=== PATIENT | female | born 1950 | race Caucasian/White ===

== ENCOUNTER 2017-04-12 02:51 | Emergency (ER) | payer MEDICARE, SELFPAY ==
[2017-04-12 02:52] VITALS: BP 143/78; PULSE 64; RESP 16; TEMP 36.8; O2SAT 97; BMI 27.7
== END 2017-04-12 03:48 | disposition left against medical advice (07) ==
PROVIDERS: Emergency Provider Emergency Medicine; Family Provider Family Medicine
DX: Z53.21 Procedure and treatment not carried out due to patient leaving prior to being seen by health care provider (principal)
CPT/HCPCS: 99203; 99211

== ENCOUNTER → 2018-01-09 13:54 | Outpatient (CLI) | payer MEDICARE, BC, SELFPAY ==
--- NOTE | 2018-01-09 14:05 | XR_ITS ---
XR ankle RT min 3V HISTORY: Lateral ankle pain with wound ITS.REASON: PRESSURE INJURY OF RT ANKLE ORDERING PHYSICIAN: Chetan Jade MD PATIENT AGE: 67 years Comparison: None FINDINGS: Soft tissue defect is present over the lateral aspect of the ankle at the level of the lateral malleolus. No fracture or dislocation. No lytic or blastic change. No abnormal soft tissue gas. No evidence of osteomyelitis. IMPRESSION: Soft tissue defect at the lateral ankle otherwise negative, no bony destructive process evident
[2018-01-09 18:12] LABS: Hemoglobin A1C 9.9 % (0.0-7.0)
[2018-01-09 18:41] LABS: Erythrocyte Sedimentation Rate 37 mm/hr (0-30)
[2018-01-09 18:43] LABS: Basophils % 0.5 % (0.1-2.0); Eosinophils # 0.1 K/mm3 (0.0-0.4); Eosinophils % 1.8 % (0.1-12.0); Hematocrit 35.2 % (37.0-47.0); Lymphocytes # 2.1 K/mm3 (0.7-4.5); Lymphocytes % 28.9 K/mm3 (10-50); Mean Corpuscular Volume 88.3 fl (81-99); Mean Platelet Volume 8.2 fl (7.4-10.4); Monocytes # 0.2 K/mm3 (0.1-1.0); Monocytes % 3.1 % (1.7-9.3); Neutrophils # 4.8 K/mm3 (1.8-7.8); Neutrophils % 65.6 % (37.0-80.0); Platelet Count 252 K/mm3 (142-424); Red Blood Count 3.99 M/mm3 (4.20-5.40); Red Cell Distribution Width 12.9 % (11.5-17.5); White Blood Count 7.3 K/mm3 (4.8-10.8)
[2018-01-09 19:28] LABS: Alanine Aminotransferase 17 U/L (12-78); Albumin Level 3.6 gm/dL (3.4-5.0); Alkaline Phosphatase 81 U/L (46-116); Anion Gap 13.5 mEq/L (5-15); Aspartate Amino Transferase 17 U/L (15-37); Bilirubin,Total 0.5 mg/dL (0.2-1.0); Blood Urea Nitrogen 25 mg/dL (7-18); Calcium 9.3 mg/dL (8.5-10.1); Carbon Dioxide 26 mmol/L (21.0-32.0); Chloride 105 mmol/L (98-107); Creatinine,Serum 1.11 mg/dL (0.55-1.02); Estimated Glomerular Filt Rate 49 ml/min (>60); GFR (African American) 59 ML/MIN (>60); Globulin 3.7 gm/dl (1.3-3.2); Glucose 204 mg/dL (74-106); Potassium 5.5 mmoL/L (3.5-5.1); Sodium 139 mmol/L (136-145); Total Protein,Serum 7.3 gm/dL (6.4-8.2)
[2018-01-09 19:51] LABS: C-Reactive Protein < 0.2 mg/L (0.0-0.9)
== END ==
PROVIDERS: Podiatrist; PCP Family Medicine; Visit Provider Family Medicine
DX: L89.512 Pressure ulcer of right ankle, stage 2 (principal)
CPT/HCPCS: 36415; 73610; 80053; 83036; 85025; 85651; 86140

== ENCOUNTER → 2018-01-09 16:07 | Outpatient (CLI) | payer MEDICARE, BC, SELFPAY | PROVIDERS: PCP Family Medicine; Visit Provider Podiatrist | DX: E11.622 Type 2 diabetes mellitus with other skin ulcer (principal); L97.319 Non-pressure chronic ulcer of right ankle with unspecified severity | CPT/HCPCS: 36415; 73610; 80053; 83036; 85025; 85651; 86140 ==

== ENCOUNTER → 2018-01-15 15:02 | Outpatient (CLI) | payer MEDICARE, BC, SELFPAY ==
--- NOTE | 2018-01-15 15:04 | US_ITS ---
US Arterial Ankle Brachial Ind History: ITS.REASON: non healing diabetic ulcer, previous smoker, bilateral rest pain, bilateral claudication, ORDERING PHYSICIAN: Mitzi Kothari DPM PATIENT AGE: 67 years TECHNIQUE: Segmental pressures obtained of both right and left leg. These are compared to brachial blood pressure to yield index at each level sampled including summary ASHLY. The data sheets from the procedure are available in PACS FINDINGS Rest study only performed today No prior studies available for comparison. Blood pressures reported are in millimeters mercury. RIGHT LEG ASHLY = 1.3. RIGHT LEG TBI=0.8 Brachial BP: 145 Thigh BP: >254 Calf BP: 184 Ankle PT: 182 Ankle DP : 150 Digit =111 LEFT LEG ASHLY = 1.0 LEFT LEG TBI= 0.9 Brachial BPD: 138 Thigh BP: >254 Calf BP: 173 Ankle PT:139 Ankle DP: 170 Digit = 130 Pulses and waveforms: Normal IMPRESSION: 1. The right ASHLY is slightly high 1.3 and the right thigh pressures are noncompressible suggesting hardening of the arteries. 2. Normal ABIs on the left. 3. Normal TBI's
== END ==
PROVIDERS: PCP Family Medicine; Visit Provider Podiatrist
DX: R09.89 Other specified symptoms and signs involving the circulatory and respiratory systems (principal)
CPT/HCPCS: 93922

== ENCOUNTER → 2019-10-01 14:40 | Outpatient (CLI) | payer MEDICARE, BC, SELFPAY ==
--- NOTE | 2019-10-01 14:44 | XR_ITS ---
PROCEDURE: XR ANKLE RT MIN 3V CLINICAL INDICATION: ankle pain COMPARISON: ANKR3 ANKLE-RT-3 VIEWS from 02/11/2015 ANKL2 ANKLE-LT-2 VIEWS from 08/20/2015 FINDINGS: No fracture or dislocation. No lytic or blastic change. There is normal mineralization. There is mild soft tissue swelling at the lateral malleolar region. Generalized vascular calcification. Other findings:None. IMPRESSION: Soft tissue swelling otherwise negative Dictated by: Erik Drake MD 10/01/2019 15:24 Electronically signed by Erik Drake MD in [place] 10/01/2019 15:24
[2019-10-01 16:27] LABS: Basophils % 0.4 % (0.1-2.0); Eosinophils # 0.1 K/mm3 (0.0-0.4); Eosinophils % 2.1 % (0.1-12.0); Hematocrit 35.4 % (37.0-47.0); Hemoglobin 11.7 g/dL (12.2-16.2); Lymphocytes # 1.8 K/mm3 (0.7-4.5); Lymphocytes % 29.8 % (10-50); Mean Corpuscular HGB Conc 33.2 g/dL (31.8-35.4); Mean Corpuscular Hemoglobin 31.1 pg (27.0-31.2); Mean Corpuscular Volume 93.7 fl (81-99); Mean Platelet Volume 8.1 fl (7.4-10.4); Monocytes # 0.2 K/mm3 (0.1-1.0); Monocytes % 2.8 % (1.7-9.3); Neutrophils % 64.8 % (37.0-80.0); Platelet Count 225 K/mm3 (142-424); Red Blood Count 3.77 M/mm3 (4.20-5.40); Red Cell Distribution Width 13.3 % (11.5-17.5); White Blood Count 6.1 K/mm3 (4.8-10.8)
[2019-10-01 17:48] LABS: Erythrocyte Sedimentation Rate 31 mm/hr (0-30)
[2019-10-01 18:36] LABS: Chloride 104 mmol/L (98-107)
[2019-10-01 18:37] LABS: Potassium 4.9 mmoL/L (3.5-5.1); Sodium 137 mmol/L (136-145)
[2019-10-01 18:39] LABS: Alanine Aminotransferase 11 U/L (12-78); Albumin Level 3.3 g/dl (3.5-5.0); Alkaline Phosphatase 79 U/L (38-126); Aspartate Amino Transferase 25 U/L (14-36); Bilirubin,Total 0.6 mg/dl (0.2-1.3); Blood Urea Nitrogen 21 mg/dl (7-17); Estimated Glomerular Filt Rate 40 ml/min (>60); GFR (African American) 49 ML/MIN (>60)
[2019-10-01 18:40] LABS: Albumin/Globulin Ratio 1.2 (1.1-1.8); Anion Gap 11.9 mEq/L (5-15); Calcium 9.2 mg/dl (8.4-10.2); Carbon Dioxide 26 mmol/L (22.0-30.0); Globulin 2.8 g/dL (1.3-3.2); Glucose 134 mg/dl (74-100); Total Protein,Serum 6.1 g/dl (6.3-8.2)
[2019-10-01 18:45] LABS: C-Reactive Protein 2.5 mg/L (0-4)
== END ==
PROVIDERS: PCP Family Medicine; Visit Provider Podiatrist
DX: E11.622 Type 2 diabetes mellitus with other skin ulcer (principal); L97.319 Non-pressure chronic ulcer of right ankle with unspecified severity; L97.312 Non-pressure chronic ulcer of right ankle with fat layer exposed; Z51.89 Encounter for other specified aftercare; Z79.4 Long term (current) use of insulin
CPT/HCPCS: 36415; 73610; 80053; 85025; 85651; 86140

== ENCOUNTER → 2020-05-03 17:08 | Outpatient (CLI) | payer MEDICARE, BC, SELFPAY ==
[2020-05-03 18:39] LABS: Basophils % 0.2 % (0.1-2.0); Eosinophils # 0.1 K/mm3 (0.0-0.4); Hematocrit 42.8 % (37.0-47.0); Hemoglobin 13.3 g/dL (12.2-16.2); Lymphocytes # 2.2 K/mm3 (0.7-4.5); Lymphocytes % 24.5 % (10-50); Mean Corpuscular HGB Conc 31.1 g/dL (31.8-35.4); Mean Corpuscular Volume 96.3 fl (81-99); Mean Platelet Volume 8.4 fl (7.4-10.4); Monocytes # 0.3 K/mm3 (0.1-1.0); Monocytes % 3.1 % (1.7-9.3); Neutrophils # 6.3 K/mm3 (1.8-7.8); Neutrophils % 71.2 % (37.0-80.0); Platelet Count 257 K/mm3 (142-424); Red Blood Count 4.45 M/mm3 (4.20-5.40); Red Cell Distribution Width 13.7 % (11.5-17.5); White Blood Count 8.8 K/mm3 (4.8-10.8)
[2020-05-03 18:57] LABS: Alanine Aminotransferase 20 U/L (12-78); Albumin Level 4.3 g/dl (3.5-5.0); Albumin/Globulin Ratio 1.2 (1.1-1.8); Alkaline Phosphatase 79 U/L (38-126); Anion Gap 12.8 mEq/L (5-15); Aspartate Amino Transferase 31 U/L (14-36); Bilirubin,Total 0.7 mg/dl (0.2-1.3); Blood Urea Nitrogen 22 mg/dl (7-17); Calcium 9.8 mg/dl (8.4-10.2); Carbon Dioxide 25 mmol/L (22.0-30.0); Chloride 105 mmol/L (98-107); Estimated Glomerular Filt Rate 40 ml/min (>60); GFR (African American) 49 ML/MIN (>60); Globulin 3.6 g/dL (1.3-3.2); Glucose 214 mg/dl (74-100); Potassium 4.8 mmoL/L (3.5-5.1); Sodium 138 mmol/L (136-145); Total Protein,Serum 7.9 g/dl (6.3-8.2)
[2020-05-03 19:03] LABS: C-Reactive Protein 13.7 mg/L (0-4)
[2020-05-03 19:59] LABS: Erythrocyte Sedimentation Rate 27 mm/hr (0-30)
[2020-05-03 22:59] LABS: Hemoglobin A1C 10.3 % (4.0-6.0)
== END ==
PROVIDERS: Visit Provider Podiatrist
DX: Z51.89 Encounter for other specified aftercare (principal); E11.621 Type 2 diabetes mellitus with foot ulcer; L97.401 Non-pressure chronic ulcer of unspecified heel and midfoot limited to breakdown of skin; F32.9 Major depressive disorder, single episode, unspecified; Z79.4 Long term (current) use of insulin
CPT/HCPCS: 36415; 80053; 83036; 85025; 85651; 86140

== ENCOUNTER 2020-05-04 11:06 | Emergency (ER) | payer MEDICARE, BC, SELFPAY ==
[2020-05-04 11:06] VITALS: BP 129/54; PULSE 63; RESP 16; TEMP 36.8; O2SAT 96; BMI 30.7
--- NOTE | 2020-05-04 11:10 | XR_ITS ---
PROCEDURE: XR HUMERUS RT CLINICAL INDICATION: fall Pain COMPARISON: DX XR SHOULDER RT MIN 2V from 05/04/2020 FINDINGS: There is a nondisplaced oblique fracture involving the proximal shaft of the humerus. There is no evidence of glenohumeral dislocation. Mild osteoarthritic changes are present at the glenohumeral joint. The mid distal aspect of the humerus has an unremarkable appearance. IMPRESSION: Nondisplaced oblique fracture of the proximal humerus Dictated by: Erik Drake MD 05/04/2020 12:37 Erik Drake MD in [place] 05/04/2020 12:37
--- NOTE | 2020-05-04 11:10 | HMH.EDFALL ---
ED Disposition Clinical Impression: Fracture, humerus closed Qualifiers: Encounter type: initial encounter Humerus Location: proximal Fracture morphology: other fracture Fracture alignment: nondisplaced Laterality: right Qualified Code(s): S42.294A - Other nondisplaced fracture of upper end of right humerus, initial encounter for closed fracture Disposition: Home, Self-Care Condition on Discharge: Good Instructions: How to Prevent Falls Referrals: Biju Gregg MD [Staff Physician] - 05/11/20 3:00 pm Chetan Jade MD [Primary Care Provider] - 3 days Time of Disposition: 13:30 - Critical Care Critical Care Time: No Attestation: On , the high probability of a clinically significant, sudden or life threatening deterioration of the following system(s) required my full and direct attention, intervention and personal management. The time I documented below is in addition to time spent performing reported procedures but includes the following listed in this critical care notation. Medical Decision Making - Medical Records Medical records reviewed: Yes: I reviewed the patient's medical records. - Rambo Inquiry Pt receiving controlled substance: Yes Rambo was queried for this patient: Yes Risks and benefits of using a controlled substance: were discussed with pt by me Vital Signs: 05/04/20 11:06 05/04/20 11:35 05/04/20 12:36 Temperature 98.2 F Temperature Source Oral Pulse Rate [Right] 63 62 69 Respiratory Rate 16 18 18 Blood Pressure [Right Arm] 129/54 L 107/44 L 114/52 L Blood Pressure Mean [Right Arm] 79 65 72 Blood Pressure Source [Right Arm] Automatic Cuff Automatic Cuff Blood Pressure Position [Right Arm] Sitting Supine 02 Sat by Pulse Oximetry 96 97 96 Oxygen Delivery Method Room Air Room Air - Radiology Data #1 Image(s): Shoulder Image Reviewed: Yes I reviewed the patient's radiology results, Yes I discussed the image results w/the radiologist Oblique, nondisplaced proximal fracture #2 Image(s): Humerus Image Reviewed: Yes I reviewed the patient's radiology results, Yes I have reviewed radiologist's interpretation Oblique, nondisplaced proximal fracture #3 Image(s): Elbow Image Reviewed: Yes I reviewed the patient's radiology results, Yes I have reviewed radiologist's interpretation Preliminary Findings: Normal/NAD Medical Decision Narrative: 69yo F evaluated after fall with complaint of right upper extremity pain. Patient denies any head strike or LOC. She is neurologically intact at this time. Basic labs were ordered but the patient declined stating she had lab work completed a few days ago. Patient is sent for x-rays of her right shoulder, humerus, elbow. X-rays reveal an oblique fracture of the proximal humerus shaft. Orthopedics has been paged. Case discussed with Dr. Gregg. He recommends arm sling with swath. Patient has an appointment made to see orthopedist in clinic. All results and plan were relayed to the family and patient at bedside. Fall HPI - General Stated Complaint: fall Time Seen by Provider: 05/04/20 11:10 Mode of Arrival: EMS Source of Information: Patient, Relative Limitations: No Limitations - History of Present Illness HPI Narrative: 69yo F brought in by ambulance after a mechanical fall. Patient is accompanied by her daughter. Reports she was using her walker when she tripped and landed on her knees and then on her right upper extremity. 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 Patient denies head strike, LOC. No nausea or vomiting. Complains of pain to the right upper extremity. - Related Data Home Medications Medication Instructions Recorded Confirmed Aspirin [Aspir 81] 81 mg PO DAILY 09/03/17 05/03/20 Gabapentin [Gabapentin 100mg Cap] 200 mg PO TID 09/03/17 05/03/20 Losartan Potassium 50 mg PO DAILY 09/03/17 05/03/20 Metoprolol Tartrate 25 mg PO BID 09/03/17 05/03/20 Simv
--- NOTE | 2020-05-04 11:17 | XR_ITS ---
PROCEDURE: XR ELBOW RT 2V CLINICAL INDICATION: fall Pain COMPARISON: No exams were available for comparison FINDINGS: No fracture or dislocation. No lytic or blastic change. There is normal mineralization. The joint spaces are well-preserved. No significant degenerative/arthritic changes. No erosive changes evident. Other findings:None. IMPRESSION: No acute findings. Dictated by: Erik Drake MD 05/04/2020 12:38 Erik Drake MD in [place] 05/04/2020 12:38
[2020-05-04 11:35] VITALS: BP 107/44; PULSE 62; RESP 18; O2SAT 97
--- NOTE | 2020-05-04 11:36 | PC.NURSE ---
Pt advises she had blood drawn yesterday and does not want it repeated today
[2020-05-04 12:36] VITALS: BP 114/52; PULSE 69; RESP 18; O2SAT 96
--- NOTE | 2020-05-04 12:50 | PC.NURSE ---
waiting clerk travel reservations back from Dr. Gregg
--- NOTE | 2020-05-04 13:17 | PC.NURSE ---
DR CHOPRA SPEAKING WITH DR BARBOSA
--- NOTE | 2020-05-04 13:18 | PC.NURSE ---
DR BARBOSA'S OFFICE CALLED WITH APPT FOR May @1500HRS
[2020-05-04 14:01] VITALS: BP 116/70; PULSE 87; RESP 16; TEMP 36.8; O2SAT 98
== END 2020-05-04 14:02 | disposition home or self-care (01) ==
PROVIDERS: Emergency Provider Family Medicine; PCP Family Medicine
DX: S42.294A Other nondisplaced fracture of upper end of right humerus, initial encounter for closed fracture (principal); W01.0XXA Fall on same level from slipping, tripping and stumbling without subsequent striking against object, initial encounter; Y92.019 Unspecified place in single-family (private) house as the place of occurrence of the external cause; E11.9 Type 2 diabetes mellitus without complications; I10 Essential (primary) hypertension; E78.5 Hyperlipidemia, unspecified; I25.2 Old myocardial infarction; Z96.642 Presence of left artificial hip joint; Z87.891 Personal history of nicotine dependence; Z88.0 Allergy status to penicillin; Z86.73 Personal history of transient ischemic attack (TIA), and cerebral infarction without residual deficits
CPT/HCPCS: 73030; 73060; 73070; 99283

== ENCOUNTER → 2020-05-11 14:19 | Outpatient (CLI) | payer MEDICARE, BC, SELFPAY ==
--- NOTE | 2020-05-11 14:45 | XR_ITS ---
PROCEDURE: XR SHOULDER RT MIN 2V CLINICAL INDICATION: RT shoulder Follow-up fracture COMPARISON: CR SHOU3L [id number] VIEWS from 08/20/2015 DX XR SHOULDER RT MIN 2V from 05/04/2020 FINDINGS: A nondisplaced oblique fracture involving the proximal shaft of the humerus not significantly changed. There are mild osteoarthritic changes at the glenohumeral joint. Other findings:None. IMPRESSION: No change nondisplaced fracture proximal humerus Dictated by: Erik Drake MD 05/11/2020 16:27 Erik Drake MD in [place] 05/11/2020 16:27
== END ==
PROVIDERS: PCP Family Medicine; Visit Provider Orthopaedic Surgery
DX: M25.511 Pain in right shoulder
CPT/HCPCS: 73030

== ENCOUNTER → 2020-05-25 15:04 | Outpatient (CLI) | payer MEDICARE, BC, SELFPAY ==
--- NOTE | 2020-05-25 15:10 | XR_ITS ---
PROCEDURE: XR SHOULDER RT MIN 2V CLINICAL INDICATION: rt proximal humerus fracture fu COMPARISON: CR SHOU3L [id number] VIEWS from 08/20/2015 DX XR SHOULDER RT MIN 2V from 05/04/2020 CR XR SHOULDER RT MIN 2V from 05/11/2020 FINDINGS: Oblique fracture involves the proximal shaft of the right humerus with minimal separation of the fracture fragments proximally by approximately 4 mm. No significant callus formation. The humeral head is located. IMPRESSION: No change minimally displaced oblique proximal humeral shaft fracture Dictated by: Erik Drake MD 05/25/2020 16:23 Erik Drake MD in [place] 05/25/2020 16:23
== END ==
PROVIDERS: PCP Family Medicine; Visit Provider Orthopaedic Surgery
DX: S42.201A Unspecified fracture of upper end of right humerus, initial encounter for closed fracture (principal)
CPT/HCPCS: 73030

== ENCOUNTER → 2020-06-14 19:03 | Outpatient (CLI) | payer MEDICARE, BC, SELFPAY | PROVIDERS: Visit Provider Podiatrist | DX: Z51.89 Encounter for other specified aftercare (principal); S42.309D Unspecified fracture of shaft of humerus, unspecified arm, subsequent encounter for fracture with routine healing | CPT/HCPCS: 87070; 87077; 87186; 87205 ==

== ENCOUNTER → 2020-06-15 14:02 | Outpatient (CLI) | payer MEDICARE, BC, SELFPAY ==
--- NOTE | 2020-06-15 14:06 | XR_ITS ---
PROCEDURE: XR SHOULDER RT MIN 2V CLINICAL INDICATION: RT proximal humerus fracture Follow-up fracture COMPARISON: CR SHOU3L [id number] VIEWS from 08/20/2015 DX XR SHOULDER RT MIN 2V from 05/04/2020 CR XR SHOULDER RT MIN 2V from 05/11/2020 CR XR SHOULDER RT MIN 2V from 05/25/2020 FINDINGS: Oblique fracture is present involving the proximal shaft of the humerus. The fracture is not significantly displaced. No significant callus formation. Fracture lines may be somewhat less distinct. Osteoarthritic changes are present involving the right shoulder. IMPRESSION: No change nondisplaced fracture proximal right humerus Dictated by: Erik Drake MD 06/15/2020 14:41 Erik Drake MD in [place] 06/15/2020 14:41
== END ==
PROVIDERS: PCP Family Medicine; Visit Provider Orthopaedic Surgery
DX: S42.301A Unspecified fracture of shaft of humerus, right arm, initial encounter for closed fracture (principal)
CPT/HCPCS: 73030

== ENCOUNTER → 2020-09-13 16:56 | Outpatient (CLI) | payer MEDICARE, BC, SELFPAY | PROVIDERS: Visit Provider Nurse Practitioner | DX: S90.822A Blister (nonthermal), left foot, initial encounter (principal) | CPT/HCPCS: 87070; 87077; 87186; 87205 ==

== ENCOUNTER → 2021-03-20 10:43 | Outpatient (CLI) | payer MEDICARE, BC, SELFPAY ==
--- NOTE | 2021-03-20 10:47 | XR_ITS ---
FINAL REPORT CLINICAL HISTORY: heel wound FINDINGS: RIGHT FOOT Laser Three views demonstrate no acute fracture or dislocation. The visualized joint spaces are normally aligned. There are mild degenerative changes. Vascular calcifications are noted. The soft tissues are otherwise unremarkable. IMPRESSION: No acute process. Reviewed, Interpreted and Dictated by Feliciano Plummer III, MD Transcribed by Lelo Montgomery Authenticated by Feliciano Plummer III, MD on 03/20/2021 01:23:54 PM [facility]
[2021-03-20 11:56] LABS: Basophils # 0.1 K/mm3 (0-0.2); Basophils % 1.3 % (0.1-2.0); Eosinophils # 0.1 K/mm3 (0.0-0.4); Eosinophils % 1.1 % (0.1-12.0); Hematocrit 48.5 % (37.0-47.0); Lymphocytes # 2.1 K/mm3 (0.7-4.5); Lymphocytes % 24.2 % (10-50); Mean Corpuscular Hemoglobin 30.6 pg (27.0-31.2); Mean Corpuscular Volume 98.7 fl (81-99); Mean Platelet Volume 8.6 fl (7.4-10.4); Monocytes # 0.3 K/mm3 (0.1-1.0); Neutrophils # 6.2 K/mm3 (1.8-7.8); Neutrophils % 70.4 % (37.0-80.0); Platelet Count 334 K/mm3 (142-424); Red Blood Count 4.92 M/mm3 (4.20-5.40); Red Cell Distribution Width 12.9 % (11.5-17.5); White Blood Count 8.8 K/mm3 (4.8-10.8)
[2021-03-20 12:28] LABS: Chloride 100 mmol/L (98-107)
[2021-03-20 12:29] LABS: Potassium 4.8 mmoL/L (3.5-5.1); Sodium 136 mmol/L (136-145)
[2021-03-20 12:31] LABS: Alanine Aminotransferase 12 U/L (12-78); Albumin Level 3.8 g/dl (3.5-5.0); Albumin/Globulin Ratio 1.2 (1.1-1.8); Alkaline Phosphatase 83 U/L (38-126); Anion Gap 12.8 mEq/L (5-15); Aspartate Amino Transferase 27 U/L (14-36); Bilirubin,Total 0.6 mg/dl (0.2-1.3); Blood Urea Nitrogen 29 mg/dl (7-17); Carbon Dioxide 28 mmol/L (22.0-30.0); Estimated Glomerular Filt Rate 49 ml/min (>60); GFR (African American) 59 ML/MIN (>60); Globulin 3.1 g/dL (1.3-3.2); Total Protein,Serum 6.9 g/dl (6.3-8.2)
[2021-03-20 12:32] LABS: Calcium 9.6 mg/dl (8.4-10.2); Glucose 356 mg/dl (74-100)
[2021-03-20 12:35] LABS: Erythrocyte Sedimentation Rate 16 mm/hr (0-30)
[2021-03-20 12:38] LABS: C-Reactive Protein 34.6 mg/L (0-4)
[2021-03-20 13:27] LABS: Hemoglobin A1C 11.2 % (4.0-6.0)
== END ==
PROVIDERS: PCP Family Medicine; Visit Provider Podiatrist
DX: Z51.89 Encounter for other specified aftercare (principal); E11.621 Type 2 diabetes mellitus with foot ulcer; L97.401 Non-pressure chronic ulcer of unspecified heel and midfoot limited to breakdown of skin; L89.610 Pressure ulcer of right heel, unstageable; Z79.4 Long term (current) use of insulin
CPT/HCPCS: 36415; 73630; 80053; 83036; 85025; 85651; 86140; 87070; 87077; 87186; 87205

== ENCOUNTER → 2021-04-25 12:47 | Outpatient (CLI) | payer MEDICARE, BC, SELFPAY ==
--- NOTE | 2021-04-25 12:49 | US_ITS ---
FINAL REPORT CLINICAL HISTORY: non-healing wounds, cold extremities.DM, CAD, Previous somker FINDINGS: Ankle brachial indices were obtained bilaterally. The ASHLY on the right is 1.2 which is normal. The ASHLY on the left is 1.4 which is nondiagnostic consistent with compressible vessels. IMPRESSION: Normal ASHLY on the right. Nondiagnostic ASHLY on the left consistent with compressible vessels. If indicated, CTA may be helpful to further evaluate. Reviewed, Interpreted and Dictated by Feliciano Plummer III, MD Transcribed by Denisse Gallego Authenticated by Feliciano Plummer III, MD on 04/25/2021 03:11:15 PM [facility]
== END ==
PROVIDERS: PCP Family Medicine; Visit Provider Podiatrist
DX: R09.89 Other specified symptoms and signs involving the circulatory and respiratory systems (principal)
CPT/HCPCS: 93923

== ENCOUNTER → 2021-05-30 13:43 | Outpatient (CLI) | payer MEDICARE, BC, SELFPAY | PROVIDERS: Visit Provider Podiatrist | DX: L89.613 Pressure ulcer of right heel, stage 3 (principal); B95.5 Unspecified streptococcus as the cause of diseases classified elsewhere; B95.2 Enterococcus as the cause of diseases classified elsewhere | CPT/HCPCS: 87070; 87077; 87186; 87205 ==

== ENCOUNTER 2023-07-17 15:47 | Outpatient (CLI) | payer MEDICARE, BC, SELFPAY ==
[2023-07-17 16:00] LABS: Basophils % 0.3 % (0.1-2.0); Eosinophils # 0.1 K/mm3 (0.0-0.4); Eosinophils % 0.6 % (0.1-12.0); Hematocrit 43.3 % (37.0-47.0); Hemoglobin 13.7 g/dL (12.2-16.2); Lymphocytes # 1.9 K/mm3 (0.7-4.5); Lymphocytes % 19.5 % (10-50); Mean Corpuscular HGB Conc 31.6 g/dL (31.8-35.4); Mean Corpuscular Hemoglobin 31.5 pg (27.0-31.2); Mean Corpuscular Volume 99.9 fl (81-99); Mean Platelet Volume 8.2 fl (7.4-10.4); Monocytes # 0.3 K/mm3 (0.1-1.0); Monocytes % 2.9 % (1.7-9.3); Neutrophils # 7.4 K/mm3 (1.8-7.8); Neutrophils % 76.7 % (37.0-80.0); Platelet Count 200 K/mm3 (142-424); Red Blood Count 4.34 M/mm3 (4.20-5.40); Red Cell Distribution Width 14.1 % (11.5-17.5); White Blood Count 9.6 K/mm3 (4.8-10.8)
[2023-07-17 16:35] LABS: Alanine Aminotransferase 20 U/L (12-78); Albumin Level 3.6 g/dl (3.5-5.0); Albumin/Globulin Ratio 1.3 (1.1-1.8); Alkaline Phosphatase 76 U/L (38-126); Anion Gap 13.4 mEq/L (5-15); Aspartate Amino Transferase 39 U/L (14-36); Bilirubin,Total 0.6 mg/dl (0.2-1.3); Blood Urea Nitrogen 21 mg/dl (7-17); Calcium 9.4 mg/dl (8.4-10.2); Carbon Dioxide 28 mmol/L (22.0-30.0); Chloride 105 mmol/L (98-107); Estimated Glomerular Filt Rate 54 ml/min (>60); GFR (African American) 66 ML/MIN (>60); Globulin 2.8 g/dL (1.3-3.2); Glucose 77 mg/dl (74-100); Potassium 4.4 mmoL/L (3.5-5.1); Sodium 142 mmol/L (136-145); Total Protein,Serum 6.4 g/dl (6.3-8.2)
[2023-07-17 16:48] LABS: Hemoglobin A1C 7.5 % (4.0-6.0)
[2023-07-17 17:07] LABS: Thyroid Stimulating Hormone 1.02 uIU/mL (0.465-4.68)
[2023-07-17 20:41] LABS: Ferritin 37.5 ng/ml (11.1-264)
[2023-07-21 09:10] LABS: Magnesium,RBC 5.5 mg/dL (3.7-7.0)
== END 2023-07-17 23:59 | disposition home or self-care (01) ==
LOC: LAB.DROPOF 15:47
PROVIDERS: PCP Nurse Practitioner Family; Visit Provider Nurse Practitioner Family
DX: D64.9 Anemia, unspecified (principal); E11.42 Type 2 diabetes mellitus with diabetic polyneuropathy; R25.2 Cramp and spasm; Z79.4 Long term (current) use of insulin; Z79.84 Long term (current) use of oral hypoglycemic drugs; E78.5 Hyperlipidemia, unspecified; I10 Essential (primary) hypertension; Z87.891 Personal history of nicotine dependence
CPT/HCPCS: 80053; 82728; 83036; 83735; 84443; 85025

== ENCOUNTER 2023-10-08 14:08 | Outpatient (CLI) | payer MEDICARE, BC, SELFPAY ==
[2023-10-08 13:55] LABS: Hemoglobin A1C 9.3 % (4.0-6.0)
[2023-10-08 14:28] LABS: Anion Gap 11.2 mEq/L (5-15); Blood Urea Nitrogen 20 mg/dl (7-17); Calcium 9.1 mg/dl (8.4-10.2); Carbon Dioxide 27 mmol/L (22.0-30.0); Chloride 106 mmol/L (98-107); Estimated Glomerular Filt Rate 61 ml/min (>60); GFR (African American) 74 ML/MIN (>60); Glucose 148 mg/dl (74-100); Potassium 4.2 mmoL/L (3.5-5.1); Sodium 140 mmol/L (136-145)
== END 2023-10-08 23:59 | disposition home or self-care (01) ==
LOC: LAB.DROPOF 14:08
PROVIDERS: PCP Nurse Practitioner Family; Visit Provider Nurse Practitioner Family
DX: E11.42 Type 2 diabetes mellitus with diabetic polyneuropathy (principal); Z79.4 Long term (current) use of insulin; E11.9 Type 2 diabetes mellitus without complications
CPT/HCPCS: 80048; 83036

== ENCOUNTER 2023-12-02 10:45 | Outpatient (CLI) | payer MEDICARE, BC, SELFPAY ==
--- NOTE | 2023-12-02 10:48 | CA_ITS ---
APPROVED REPORT EXAM: Comprehensive 2D, Doppler, and color-flow Echocardiogram I O Psychologist: Nae Hilliard, RT(R) Ht: 5 ft 5 in Wt: 199lbs BSA: 1.97 BP: 132/58 mmHg Indications: abn EKG, hx WA, CVA, ex smoker, HTN, DM, 2D Dimensions Left Atrium 3.41 cm F: 2.7 - 3.8 LVEF (Acosta's) 41.60 % F: 54 - 74 LVOT 2.00 cm (M/F) 1.5-2.5 LV Volume 69.50 mL F: 46 - 106 LV Volume Index 35.1 mL/m2 F: 29 - 61 LA Volume 41.80 mL LA Volume Index 21.11 mL/m2 (M/F) 16-34 EF AP4 38.60 % EF AP2 43.6 % EF BP 41.6 % GL Strain -11.2 % M-Mode Dimensions RVDd 2.65 cm (0.9-2.6) LVDd 3.24 cm (3.5-5.7) Ao Diam 3.01 cm (2.0-3.7) LVDs 2.46 cm (3.5-5.7) IVSd 1.05 cm (0.6-1.1) PWd 0.87 cm (0.6-1.1) EF (Teich) 49.30% FS 24.10% EDV (Teich) 42.20 mL ESV (Teich) 21.40 mL LV Diastology E Decel Time 244 (160-240 msec) E/A Ratio 1.4 MED E' 6.5 (>= 7 cm/sec) E'/MED E' Ratio 21.38 (<= 14) LAT E' 7.3 (>= 10 cm/sec) E/LAT E' Ratio 19.04 (<= 14) Mitral Valve MV E Max Aureliano. 139.0 (40-130 cm/s) MV A Velocity 102.0 (40-130 cm/s) E/A Ratio 1.37 MV Decel. Time 244 (160-240 ms) Tricuspid Valve TR P. Velocity 307.00 cm/s RAP Estimate 10.00 mmHg RVSP 47.70 mmHg Left Ventricle The left ventricle is normal size. The left ventricular systolic function is normal. The left ventricular ejection fraction is within the normal range. There is increased LV wall thickness. The septum is asynchronous. The left ventricular diastolic function is normal. LVEF is 55%. Right Ventricle The right ventricle is mildly dilated. The right ventricular systolic function is normal. Atria Left atrium is mildly dilated. The right atrium size is normal. There is no Doppler evidence of interatrial shunt. Aortic Valve The aortic valve is mildly thickened. There is no aortic valvular stenosis. Trace aortic regurgitation. Mitral Valve Mild mitral annular calcification. The mitral valve leaflets are mildly thickened. Mean MV gradient 3 mmHg (HR 69 bpm). Mild mitral regurgitation. Tricuspid Valve The tricuspid valve leaflets are thin and pliable. Trace tricuspid regurgitation. There is insufficient TR jet to estimate RVSP. Pulmonic Valve The pulmonary valve is normal in structure. Trace pulmonic regurgitation. Great Vessels The aortic root is normal in size. The ascending aorta is not well-visualized. The IVC is not well-visualized. Pericardium There is no pericardial effusion. Other Information Study Quality: Fair Conclusion Normal biventricular systolic function. Mild RV dilation. Mild LA dilation. Mild MR. Electronically signed by : Tami Sullivan MD 12/02/2023 12:39:00
== END 2023-12-02 23:59 | disposition home or self-care (01) ==
LOC: RT 10:46
PROVIDERS: PCP Nurse Practitioner Family; Visit Provider Nurse Practitioner Family
DX: R94.31 Abnormal electrocardiogram [ECG] [EKG] (principal); I51.7 Cardiomegaly; I34.0 Nonrheumatic mitral (valve) insufficiency
CPT/HCPCS: 93306

== ENCOUNTER 2024-08-21 14:10 | Outpatient (CLI) | payer MEDICARE, BC, SELFPAY ==
[2024-08-21 17:27] LABS: Basophils # 0.1 K/mm3 (0-0.2); Basophils % 0.5 % (0.1-2.0); Eosinophils # 0.1 Kmm3 (0.0-0.4); Eosinophils % 0.8 % (0.1-12.0); Hematocrit 39.2 % (37.0-47.0); Immature Granulocytes # 0.02 10^3uL; Immature Granulocytes % 0.2 %; Lymphocytes # 1.6 K/mm3 (0.7-4.5); Mean Corpuscular HGB Conc 33.2 g/dL (31.8-35.4); Mean Corpuscular Hemoglobin 30.8 pg (27.0-31.2); Mean Corpuscular Volume 92.9 fl (81-99); Mean Platelet Volume 11.3 fl (7.4-10.4); Monocytes # 0.3 K/mm3 (0.1-1.0); Monocytes % 3.5 % (1.7-9.3); Neutrophils # 7.2 K/mm3 (1.8-7.8); Nucleated Red Blood Cells # 0 10^3/uL; Nucleated Red Blood Cells % 0 %; Platelet Count 233 K/mm3 (142-424); Red Blood Count 4.22 M/mm3 (4.20-5.40); Red Cell Distribution Width 13.1 % (11.5-17.5); Red Cell Distribution Width-SD 44.4 fL; White Blood Count 9.2 K/mm3 (4.8-10.8)
[2024-08-21 18:03] LABS: Alanine Aminotransferase 13 U/L (12-78); Albumin Level 3.1 g/dl (3.5-5.0); Albumin/Globulin Ratio 1.2 (1.1-1.8); Alkaline Phosphatase 99 U/L (38-126); Anion Gap 6.9 mEq/L (5-15); Aspartate Amino Transferase 22 U/L (14-36); Bilirubin,Total 0.6 mg/dl (0.2-1.3); Blood Urea Nitrogen 25 mg/dl (7-17); Calcium 10.2 mg/dl (8.4-10.2); Carbon Dioxide 28 mmol/L (22.0-30.0); Chloride 103 mmol/L (98-107); Chol/HDL Ratio 3.4 (1-3.5); Cholesterol 120 mg/dl (140-200); Estimated Glomerular Filt Rate 44 ml/min (>60); GFR (African American) 53 ML/MIN (>60); Globulin 2.5 g/dL (1.3-3.2); Glucose 237 mg/dl (74-100); HDL Cholesterol 35 mg/dl (40-60); Potassium 4.9 mmoL/L (3.5-5.1); Sodium 133 mmol/L (136-145); Total Protein,Serum 5.6 g/dl (6.3-8.2); Triglycerides 160 mg/dl (30-150); VLDL Cholesterol 32 mg/dL (0-40)
[2024-08-21 18:14] LABS: Direct LDL Cholesterol 48.26 mg/dL (100-129)
[2024-08-21 19:03] LABS: Hemoglobin A1C 10.4 % (4.0-6.0)
--- OUTSIDE RECORDS SUMMARY | 2024-08-21 22:20 | XMS_ITS | Clinical Summary ---
Author Organization Healthcare Address [address] [place] [address] Care Team Providers Care Direct Mail Manager Name Role Phone Chetan Jade MD Primary Care Provider [phone] Immunizations Immunization Administration Dates Next Due Influenza, seasonal, injectable 12/12/2014 Influenza, seasonal, injectable, preservative fr ee 12/23/2013 Pneumococcal Polysaccharide PPV23 10/12/2013 Family History Medical History Relation Name Comments Cardiac disorder Father Cardiac disorder Paternal Grandfather Diabetes Sister 1 Hypertension Sister 2 Relation Name Status Comments Father Paternal Grandfather Sister 1 Sister 2 Social History Tobacco Use Types Packs/Day Years Used Date Smoking Tobacco: Former Comments Unknown Sex and Gender Information Value Date Recorded Sex Assigned at Not on file Legal Sex Female 8:51 PM EDT Gender Identity Not on file Sexual Orientation Not on file Last Filed Vital Signs Vital Sign Reading Time Taken Comments Blood Pressure - - Pulse - - Temperature - - Respiratory Rate - - Oxygen Saturation - - Inhaled Oxygen Concentration - - Weight 81.2 kg (178 lb 15.9 oz) 01/10/2016 3:42 PM EDT Height 165.1 cm (5' 5 ) 01/10/2016 3:42 PM EDT Body Mass Index 29.79 01/10/2016 3:42 PM EDT Plan of Treatment Not on file Care Teams Direct Mail Manager Relationship Specialty Start Date End Date Chetan [place] [address] PCP - General 07/22/20
== END 2024-08-21 23:59 | disposition home or self-care (01) ==
LOC: LAB.DROPOF 22:19
PROVIDERS: PCP Internal Medicine; Visit Provider Internal Medicine
DX: Z00.00 Encounter for general adult medical examination without abnormal findings (principal); E11.42 Type 2 diabetes mellitus with diabetic polyneuropathy; D75.89 Other specified diseases of blood and blood-forming organs; E78.5 Hyperlipidemia, unspecified; Z79.4 Long term (current) use of insulin
CPT/HCPCS: 80053; 80061; 83036; 85025

== ENCOUNTER 2024-12-03 11:31 | Outpatient (CLI) | payer MEDICARE, BC, SELFPAY ==
--- OUTSIDE RECORDS SUMMARY | 2024-12-03 11:35 | XMS_ITS | Clinical Summary ---
Author Organization Healthcare Address [address] [place] [address] Care Team Providers Care Petroleum Production Engineer Name Role Phone Chetan Jade MD Primary Care Provider [phone] Immunizations Immunization Administration Dates Next Due Influenza, [...] of Treatment Not on file Care Teams Petroleum Production Engineer Relationship Specialty Start Date End Date Chetan [place] [address] PCP - General 07/22/20
--- NOTE | 2024-12-03 11:39 | XR_ITS ---
FINAL REPORT CLINICAL HISTORY: Left hip pain, previous surgery more than 3 mos ago FINDINGS: An AP view of the pelvis and a frog leg view of the left hip were obtained. There is no prior exam for comparison. There are changes from arthroplasty. The hardware appears intact. Osteopenia is noted. There is no acute fracture or dislocation. Deformity of the right inferior pubic ramus and may be old. Remaining osseous pelvis is without acute abnormality. Soft tissues are unremarkable. IMPRESSION: No acute osseous abnormality of the left hip. 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 Reviewed, Interpreted and Dictated by Courtney Romero MD Transcribed by Chantale Gracia Authenticated and [facility]
== END 2024-12-03 23:59 | disposition home or self-care (01) ==
PROVIDERS: PCP Internal Medicine; Visit Provider Internal Medicine
DX: M25.552 Pain in left hip (principal); R93.6 Abnormal findings on diagnostic imaging of limbs
CPT/HCPCS: 73502